=== PATIENT | female | born 1960 | race Caucasian/White ===

== ENCOUNTER 2022-07-17 10:22 | Day surgery (SDC) | payer OTHER ==
[2022-07-15 12:18] VITALS: BMI 34.7
[2022-07-17] MEDS ORDERED: MIDAZOLAM HCL 2 MG/2 ML SINGLE DOSE VIAL ONE (11:26)
[2022-07-17] MEDS ORDERED: ACETAMINOPHEN 325 MG TABLET (FP) ONE (12:15)
[2022-07-17 12:26] VITALS: RESP 16; TEMP 97.8
[2022-07-17 13:21] VITALS: BP 140/65; PULSE 82
== END 2022-07-17 13:05 | disposition home or self-care (01) ==
LOC: FASU 10:22
PROVIDERS: ATTEND Orthopaedic Surgery Hand Surgery
PROC: 01N50ZZ Release Median Nerve, Open Approach (ICD-10-PCS; principal; 2022-07-17 11:42)
DX: G56.02 Carpal tunnel syndrome, left upper limb (principal)
CPT/HCPCS: 82962

== ENCOUNTER 2022-10-09 07:06 | Day surgery (SDC) | payer OTHER ==
[2022-10-03 13:37] VITALS: BMI 33.6
[2022-10-09] MEDS ORDERED: ONDANSETRON 4 MG/2 ML VIAL IVPUSH PRN (07:29)
[2022-10-09] MEDS ORDERED: oxyCODONE HCL 5 MG TABLET PO PRN (07:29)
[2022-10-09] MEDS ORDERED: LACTATED RINGERS SOLUTION 1,000 ML IV SCH (07:30)
[2022-10-09] MEDS ORDERED: LIDOCAINE HCL 2% (20ML MULTI-DOSE VIAL) ONE (08:19)
[2022-10-09] MEDS ORDERED: PROPOFOL 20 ML ONE (08:30)
[2022-10-09] MEDS ORDERED: MIDAZOLAM HCL 2 MG/2 ML SINGLE DOSE VIAL ONE (08:30)
[2022-10-09] MEDS ORDERED: ONDANSETRON 4 MG/2 ML VIAL ONE (08:54)
[2022-10-09 09:24] VITALS: RESP 18; TEMP 97.9
[2022-10-09 09:45] VITALS: BP 113/69; PULSE 61
== END 2022-10-09 10:10 | disposition home or self-care (01) ==
LOC: FASU 07:06
PROVIDERS: ATTEND Orthopaedic Surgery Hand Surgery
PROC: 01N50ZZ Release Median Nerve, Open Approach (ICD-10-PCS; principal; 2022-10-09 08:49)
DX: G56.01 Carpal tunnel syndrome, right upper limb (principal)
CPT/HCPCS: 82962